=== PATIENT | female | born 1980 | race Two or more races ===

== ENCOUNTER 2019-05-09 08:20 | Emergency (ER) | payer MEDICAID ==
[~2019-05-09] VITALS: Ht 152.4 cm; Wt 93.4 kg
[2019-05-09 08:43] VITALS: BP 147/84
[2019-05-09] MEDS ORDERED: HYDROcodone-ACET 5/325MG TAB PO ONE (09:00)
== END 2019-05-09 09:58 | disposition home or self-care (01) ==
LOC: ER 08:20
DX: S70.02XA Contusion of left hip, initial encounter (principal); E11.9 Type 2 diabetes mellitus without complications; Z90.49 Acquired absence of other specified parts of digestive tract; Z88.8 Allergy status to other drugs, medicaments and biological substances; W01.198A Fall on same level from slipping, tripping and stumbling with subsequent striking against other object, initial encounter; Y93.89 Activity, other specified; Y99.8 Other external cause status; Y92.89 Other specified places as the place of occurrence of the external cause
CPT/HCPCS: 73502; 82962